=== PATIENT | male | born 2005 | race Caucasian/White ===

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

== ENCOUNTER 2025-01-04 07:21 | Day surgery (SDC) | payer BC, SELFPAY ==
[2025-01-04] VITALS (16 sets, daily range): BP systolic 92–133; BP diastolic 51–73; PULSE 69–117; RESP 14–20; TEMP 36.1–36.6; O2SAT 92–98; BMI 54.6
[2025-01-04] MEDS: LACTATED RINGERS 1000 ML 1,000 ML 100 ML IV ×2 (07:25→10:54)
[2025-01-04] MEDS: SODIUM CHLORIDE 0.9 % (FLUSH) 10 ML SYRINGE IVF (07:51)
--- NOTE | 2025-01-04 08:45 | CRLHL7_ITS ---
For Patients: As a result of the Cures Act, medical imaging exams and procedure reports are released immediately into your electronic medical record. You may view this report before your referring provider. If you have questions, please contact your health care provider. Indication: LEFT ANKLE ORIF Technique: Five fluoroscopic images left ankle. Fluoroscopic time 193.3 seconds. IMPRESSION: Fluoroscopic guidance for open reduction internal fixation fibular diaphyseal fracture along with syndesmotic fusion. Dictated by Eriberto Patton MD @ 01/04/2025 11:24:04 AM (Electronically Signed)
[2025-01-04] MEDS: MIDAZOLAM HCL 1 MG/ML inj IVP (09:05)
[2025-01-04] MEDS: fentaNYL 100 MCG/2 ML inj IVP (09:05)
--- NOTE | 2025-01-04 09:21 | SUR.PREOP ---
TIME?OUT:?904 PT/meghan andrade RN/bib mcfarlane MDA?VERIFICATION?OF?SURGICAL?SITE,?PROCEDURE,?AND?CONSENT OBTAINED?PRIOR?TO?INVASIVE?PROCEDURE.
--- NOTE | 2025-01-04 09:22 | W.PM.NB ---
Nerve Block Nerve Block Time Seen by Provider: 09:15 Date Seen: 01/04/25 Type of block requested by surgeon for post-operative analgesia: adductor canal Side: left Time out performed: Yes Verification of patient name: Yes Verification of date of : Yes Site marking: site marked Name of person performing procedure: Malik Continuous monitoring Was continuous monitoring of O2 sat, B/P, cinder crane operator, recorded every 15 minutes?: Yes Procedure Checklist: sterile prep, needles and gloves Ultrasound guided. Images saved: Yes Medications given in 5ml increments after negative aspiration: Marcaine %: 0.25 mL: 10 Needle gauge: 20 and Exparel mL: 10 Patient tolerated procedure well: Yes Block Charges Block Charge (with Pro Fee): Femoral Nerve Use of Ultrasound Machine for Block: Yes- US Guidance/pain block
--- NOTE | 2025-01-04 09:23 | W.PM.NB ---
Nerve Block Nerve Block Time Seen by Provider: 09:15 Date Seen: 01/04/25 Type of block requested by surgeon for post-operative analgesia: popliteal Side: left Time out performed: Yes Verification of patient name: Yes Verification of date of : Yes Site marking: site marked Name of person performing procedure: Malik Continuous monitoring Was continuous monitoring of O2 sat, B/P, upstream biomanufacturing technician, recorded every 15 minutes?: Yes Procedure Checklist: sterile prep, needles and gloves Ultrasound guided. Images saved: Yes Medications given in 5ml increments after negative aspiration: Marcaine %: 0.25 mL: 10 Needle gauge: 20 and Exparel mL: 10 Patient tolerated procedure well: Yes Additional comments: Needle noted adjacent to nerve Block Charges Block Charge (with Pro Fee): Sciatic Nerve Use of Ultrasound Machine for Block: Yes- US Guidance/pain block
[2025-01-04] MEDS: CEFAZOLIN 1 GM inj 3 GM IVP (09:45)
--- NOTE | 2025-01-04 11:12 | PM.ORPRC ---
Procedure Note Date of procedure: 01/04/25 Procedure: PREOPERATIVE DIAGNOSIS: Left ankle Mccollum C bimalleolar fracture POSTOPERATIVE DIAGNOSIS: Left ankle Mccollum C bimalleolar fracture NAME OF OPERATION: ORIF SURGEON: Musa Mckinley MD MATERIAL CONTROL ANALYST: CHERRI Alcala ANESTHESIA: Spinal plus popliteal block ESTIMATED BLOOD LOSS: 0 mL COMPLICATIONS: None SPECIMENS: None DRAINS: None PREOPERATIVE ANTIBIOTICS: Ancef 3 g INDICATIONS: The patient is a 19-year-old who sustained a left ankle fracture. ORIF was recommended. The risks, benefits and expected outcomes were discussed in detail. These included but were not limited to: Infection, bleeding, injury to blood vessel or nerve, venous thromboembolism. All questions were answered to their satisfaction. Use of an entry level administrative assistant was necessary throughout the case for patient positioning and safety, soft tissue retraction and closure. PROCEDURE: A popliteal block was placed by anesthesia. General anesthesia was administered. The lower extremity was prepped and draped in the usual sterile fashion. A stab incision was made over the anterior and posterior aspect of the fracture site. A Mccollum reduction clamp was used to obtain an anatomic reduction. The guide pin was placed in the center of the distal fragment of the fibula, percutaneously. Its placement was confirmed with the image intensifier in multiple views. A stab incision was made around the guide pin. The opening reamer was used, past the fracture site. The 3.2 mm and 4.0 mm reamer were used in the proximal fragment. We placed the Arthrex 3.8 mm x 180 mm intramedullary nail. The talons were deployed. We placed 2 lateral to medial screws in the distal fragment. We placed 2 x 3.5 mm syndesmotic screws. The fibula was drilled with the guide. However, the angle on the tibia was incorrect. Therefore, we removed the baseball player. The angle on the tibia was changed and was drilled freehand. We placed 2 x 3.5 mm Quadra cortical syndesmotic screws after reducing the syndesmosis with the reduction clamp. These had excellent purchase and were verified with the image intensifier. The reduction clamp was removed and the syndesmosis remains anatomically reduced. The end cap was placed. This provides an anatomic reduction of the fibula and syndesmosis, with excellent fixation. Implants were imaged in the AP, mortise and lateral views and were felt to be well placed with an excellent reduction. The talus is nicely reduced under the tibial plafond. The wounds were irrigated with normal saline. The entry level administrative assistant closed the skin with a 4-0 Monocryl in a subcuticular fashion. Glue was used to seal the skin. The entry level administrative assistant placed a dry dressing and short leg Truman Gamez splint. Sponge and needle counts were correct x 2. The patient tolerated the procedure well. There were no apparent complications. They were carefully transferred to the hospital bed and taken to the postanesthesia care unit in satisfactory condition. PLAN: The patient will be discharged to home. They will remain strict nonweightbearing on the lower extremity. They will continue to work on ice and elevation. They will follow-up in the office in 1-2 weeks for a wound check and three views of the ankle of the cast prior to being seen in preparation for short-leg, nonweightbearing waterproof cast application. He will be nonweightbearing for a total of 6 weeks, then weight-bearing as tolerates in a CAM walker, with physical therapy. At 12 weeks, we will get him a date for syndesmotic screw removal.
--- NOTE | 2025-01-04 13:59 | P.ANES_ITS ---
Anesthesia Charges Start Date/Time Anesthesia Start Date: 01/04/25 Anesthesia Start Time: 09:23 Stop Date/Time Anesthesia Stop Date: 01/04/25 Anesthesia Stop Time: 11:34 Coding CPT Codes CPT Codes: ANESTH LOWER LEG BONE SURG - 07158 ([id number]) P3 - PATIENT W/SEVERE SYS DISEASE, QZ - SOIL SCIENTIST SVC W/O FORESTRY TECHNICAL OFFICER BY
--- NOTE | 2025-01-04 13:59 | W.ANESCHARGE ---
Anesthesia Charges Start Date/Time Anesthesia Start Date: 01/04/25 Anesthesia Start Time: 09:23 Stop Date/Time Anesthesia Stop Date: 01/04/25 Anesthesia Stop Time: 11:34 Coding CPT Codes CPT Codes: ANESTH LOWER LEG BONE SURG - 12540 ([id number]) P3 - PATIENT W/SEVERE SYS DISEASE, QZ - LONG TERM CARE PHLEBOTOMIST SVC W/O GREEN CHAIN MARKER BY
== END 2025-01-04 13:20 | disposition home or self-care (01) ==
LOC: OR 07:22
PROVIDERS: Visit Provider Orthopaedic Surgery
PROC: (CPT 27814; principal; 2025-01-04 08:45)
DX: S82.842A Displaced bimalleolar fracture of left lower leg, initial encounter for closed fracture (principal); G89.18 Other acute postprocedural pain
CPT/HCPCS: 27814; 01480; 64445; 64447; 73610; 76000; 76942; C1713; J0665; J0666; J0690; J1100; J2250; J2371; J2405; J2704; J3010; J3490; J7120

== ENCOUNTER 2025-03-17 10:00 | Outpatient (RCR) | payer BC, SELFPAY ==
--- NOTE | 2025-02-24 10:20 | PT.OPEX ---
PT [place] Out[facility] Eval PT [facility] Outpatient Eval Start: 02/24/25 09:23 Freq: Status: Active Protocol: Document 02/24/25 09:24 [facility] (Rec: 02/24/25 10:16 [facility] [id number]) E-signed By Bennett Foley, PT Physical Therapy Outpatient Evaluation Insurance Information Insurance Name Medicaid Insurance Information/Comments PMAP Medical Diagnosis Acute disruption of syndesmosis of ankle joint Sprain of talofibular ligament S93.439A Treating Diagnosis left ankle stiffness M25.672 left ankle pain M25.572 difficulty walking R26.2 unsteadiness on feet R26.81 muscle weakness M62.[address] uMsa Mckinley/ Remedios Turner PA-C Subjective Preferred Name Kofi Subjective Kofi presents ~2 months s/p ORIF for bimalleolar fracture left ankle sustained from slip /fall on ice. He is ambulating with two crutches and left CAM boot. He is to wear the CAM boot for another six weeks , but can ween off the crutches. He is scheduled to have surgery to take out the screws 04/12/25. Pain Comments Left ankle: 10/29 Date of Last Physician Visit 02/21/25 Date of Next Physician Visit 04/04/25 Date of Surgery (If applicable) 01/04/25 Current Work Status Student Precautions Treatment Precautions/Contraindications Keep CAM boot on for another six weeks (starting 02/21/25). WBAT in left CAM boot Therapy Limitations/Systems Review Not Limited Objective Other/Pertinent Objective Left ankle: ROM Active/ Passive DF: 5 / 7 deg PF: 45 / 50 Inversion: 40 / 50 Eversion: 35/ 45 Left ankle strength: DF: 4+ PF: 4 Inversion: 4 Eversion: 4- Left hip and knee 5/5 Fig 8: L ankle 61.75 cm Functional Test Performed & Score L SLS (in CAM boot): unable to perform w/o UE support. w/ UE support, tolerated 1 sec Assessment Assessment/Impression Kofi is a pleasant 19 year old male presenting with impaired left ankle DF ROM and impaired strength related to left ankle bimalleolar fracture requiring ORIF . He presents to clinic today with left CAM boot and bilateral axillary crutches. Kofi has not attempted walking without the crutches. He has limited tolerance for standing on left leg in the CAM boot. I recommend skilled PT for progression of HEP to facilitate left ankle ROM and strength and progression to ambulation in the CAM boot without crutches. Primary Functional Limitations ambulation, stairs, balance Plan of Care Rehabilitation Potential Excellent Rehabilitation Potential Comments young, committed to process Physical Therapy Goals In 6 weeks, patient will: 1) Demo WNL left ankle ROM and strength to facilitate smooth transition to ambulation out of the CAM boot, once allowed 2) Ambulate I in left CAM boot on [facility] with minimal ankle discomfort 3) Increase L SLS to 10 sec in CAM boot Coordination/Communication With Referral Source Treatment Plan/Direct Interventions Gait Training,Manual Therapy, Neuromuscular Re-ed,Self-Care/ Home Management,Therapeutic Activities,Therapeutic Exercises Direct Interventions Clarification left ankle rehab Comments Frequency/Duration ~1x/ week for 6-8 weeks Patient Will Be Discharged From Therapy Completion of LTG(s), Independent w/HEP, Independently Progressing Evaluation Billing Untimed Code Treatment Minutes 20 Complexity High Certification Information Initial Certification Date 02/24/25 Ending Certification Date 05/19/25 Provider Signature Required Yes Provider Signature Shows Agreement With POC & Medical Necessity Physician NPI Number Write NPI# Here Physician Comment/Change : Physician Signature & Date Requested Please Sign/Date Here
== END 2025-07-15 23:59 | disposition home or self-care (01) ==
PROVIDERS: Visit Provider Physician Assistant
DX: Z51.89 Encounter for other specified aftercare (principal); S93.439A Sprain of tibiofibular ligament of unspecified ankle, initial encounter; Z98.890 Other specified postprocedural states
CPT/HCPCS: 97110; 97116; 97163

== ENCOUNTER 2025-04-07 08:58 | Day surgery (SDC) | payer BC, SELFPAY ==
[2025-04-07 09:39] VITALS: BMI 55.1
[2025-04-07 09:44] VITALS: BP 99/58; PULSE 72; RESP 16; TEMP 36.8; O2SAT 97
[2025-04-07] MEDS: LACTATED RINGERS 1000 ML 1,000 ML 100 ML IV (10:03)
[2025-04-07] MEDS: SODIUM CHLORIDE 0.9 % (FLUSH) 10 ML SYRINGE IVF (10:03)
--- NOTE | 2025-04-07 10:19 | P.ANES_ITS ---
Anesthesia Charges Start Date/Time Anesthesia Start Date: 04/07/25 Anesthesia Start Time: 10:24 Stop Date/Time Anesthesia Stop Date: 04/07/25 Anesthesia Stop Time: 11:05 Coding CPT Codes CPT Codes: ANESTH LOWER LEG BONE SURG - 58877 ([id number]) P3 - PATIENT W/SEVERE SYS DISEASE, QK - SALON SALES CONSULTANT 2-4 CNCRNT ANES PROC, QX - INSPECTOR COATED FABRICS SVC W/ MD MED DIRECTION
--- NOTE | 2025-04-07 10:19 | W.ANESCHARGE ---
Anesthesia Charges Start Date/Time Anesthesia Start Date: 04/07/25 Anesthesia Start Time: 10:24 Stop Date/Time Anesthesia Stop Date: 04/07/25 Anesthesia Stop Time: 11:05 Coding CPT Codes CPT Codes: ANESTH LOWER LEG BONE SURG - 36271 ([id number]) P3 - PATIENT W/SEVERE SYS DISEASE, QK - CREEL CLEANER 2-4 CNCRNT ANES PROC, QX - HUMAN RESOURCES CLERK SVC W/ MD MED DIRECTION
[2025-04-07] MEDS: CEFAZOLIN 1 GM inj IVP (10:34)
[2025-04-07] MEDS: BUPIVACAINE 0.25 %/EPI 1:200K 30 ml INJECTION (10:40)
--- NOTE | 2025-04-07 10:51 | SUR.OPER ---
2 screws removed from left ankle at 8464
[2025-04-07 11:00] VITALS: BP 122/85; PULSE 82; RESP 20; TEMP 37.4; O2SAT 93
--- NOTE | 2025-04-07 11:00 | P.ORPRC_ITS ---
Procedure Note Date of procedure: 04/07/25 Procedure: PREOPERATIVE DIAGNOSIS: Left ankle fracture ORIF with retained hardware POSTOPERATIVE DIAGNOSIS: Left ankle fracture ORIF with retained hardware SURGEON: Musa Mckinley MD AOC DIRECTOR INTELLIGENCE OFFICER: CHERRI Alcala NAME OF OPERATION: Hardware removal deep ANESTHESIA: Local plus monitored anesthesia care ESTIMATED BLOOD LOSS: 2 mL COMPLICATIONS: None SPECIMENS: None DRAINS: None PREOPERATIVE ANTIBIOTICS: Ancef 3 gram INDICATIONS: The patient is a 19-year-old who sustained an ankle fracture. ORIF was completed previously. They present today for elective syndesmotic screw removal. The risks, benefits and expected outcomes were discussed in detail. These included but were not limited to: Infection, bleeding, injury to blood vessel or nerve, venous thromboembolism. All questions were answered to their satisfaction. I discussed with the patient and his family that since the broken screw shaft was isolated to the tibia and not broken off within the syndesmosis, I think we should leave it in place. They agreed. Use of an product development assistant was necessary throughout the case for patient positioning and safety, soft tissue retraction and closure. Provider Operated C-arm: C-arm fluoroscopy operated by Musa Mckinley MD for retained hardware location and confirm removal. Four C-arm spot images were obtained. Fluoroscopy time was 4 seconds. PROCEDURE: The patient was placed supine on the operating room table. IV sedation was administered. Local anesthesia was administered. The lower extremity was prepped and draped in the usual sterile fashion. The previously placed incision was utilized. Subcutaneous dissection was bluntly taken to the screw heads which were fully exposed. The distal screw was removed. As was previously noted this screw was broken. Therefore, the shaft remains in tibia. It is not in the syndesmosis and therefore was felt okay to be left in place. The more proximal syndesmotic screw was removed intact, without complication. The image intensifier was used to obtain an AP, mortise and lateral view of the ankle, showing the screws have been removed. The wound was irrigated with normal saline. The product development assistant closed soft tissue with a 3-0 Vicryl deep and a 3-0 Monocryl subcuticular. The product development assistant placed a soft dressing. Sponge and needle counts were correct x 2. The patient tolerated the procedure well. There were no apparent complications. They were carefully transferred to the hospital bed and taken to the postanesthesia care unit in satisfactory condition. PLAN: The patient will be discharged to home. They may weightbear as tolerates. Ice, ibuprofen and Tylenol will be used as needed for pain. They will follow up in the office in 2 weeks for a wound check.
--- NOTE | 2025-04-07 11:04 | P.ANES_ITS ---
Anesthesia Charges Start Date/Time Anesthesia Start Date: 04/07/25 Anesthesia Start Time: 10:24 Stop Date/Time Anesthesia Stop Date: 04/07/25 Anesthesia Stop Time: 11:05 Coding CPT Codes CPT Codes: ANESTH LOWER LEG BONE SURG - 68566 ([id number]) P3 - PATIENT W/SEVERE SYS DISEASE, QK - DRIVER MESSENGER 2-4 CNCRNT ANES PROC, QX - PROTECTION AGENT SVC W/ MD MED DIRECTION
--- NOTE | 2025-04-07 11:04 | W.ANESCHARGE ---
Anesthesia Charges Start Date/Time Anesthesia Start Date: 04/07/25 Anesthesia Start Time: 10:24 Stop Date/Time Anesthesia Stop Date: 04/07/25 Anesthesia Stop Time: 11:05 Coding CPT Codes CPT Codes: ANESTH LOWER LEG BONE SURG - 83197 ([id number]) P3 - PATIENT W/SEVERE SYS DISEASE, QK - EVENT COORDINATOR MARKETING AND SALES 2-4 CNCRNT ANES PROC, QX - CLOTHESPIN DRIER OPERATOR SVC W/ MD MED DIRECTION
[2025-04-07 11:15] VITALS: BP 121/64; PULSE 80; RESP 16; O2SAT 96
[2025-04-07 11:30] VITALS: BP 140/96; PULSE 85; RESP 16; O2SAT 97
[2025-04-07 11:45] VITALS: BP 138/95; PULSE 76; RESP 16; O2SAT 97
== END 2025-04-07 12:05 | disposition home or self-care (01) ==
PROVIDERS: Visit Provider Orthopaedic Surgery
PROC: (CPT 20680; principal; 2025-04-07 10:45)
DX: Z47.2 Encounter for removal of internal fixation device (principal)
CPT/HCPCS: 20680; 01480; 73610; 76000; J0690; J1100; J2250; J2405; J2704; J3010; J3490; J7120